=== PATIENT | female | born 2000 | race African-American/Black ===

== ENCOUNTER 2022-11-30 09:48 | Emergency (ER) | payer OTHER ==
[2022-11-30] MEDS ORDERED: Ketorolac Tromethamine 30 MG/ML VIAL ONE (10:15)
== END 2022-11-30 10:20 | disposition home or self-care (01) ==
LOC: CSHERS 09:48
DX: S16.1XXA Strain of muscle, fascia and tendon at neck level, initial encounter (principal); V29.99XA Rider (driver) (passenger) of other motorcycle injured in unspecified traffic accident, initial encounter
CPT/HCPCS: 96372; 99283; J1885